=== PATIENT | female | born 1960 | race Caucasian/White ===

== ENCOUNTER 2017-04-24 19:38 | Inpatient (IN) | payer SELFPAY ==
[~2017-04-24 19:38] MED LIST: ISOVUE-370 76%-LOCM 1 ML ONE
[2017-04-24 20:10] LABS: #Eosinphils 0.1 thou/uL (0.0-0.7); #Lymphocytes 1.6 thou/uL (1.20-3.40); #Monocytes 0.9 thou/uL (0.11-0.59); #Neutrophils 12.2 thou/uL (1.40-6.50); %Basophils 0.2 % (0.0-1.0); %Eosinophils 0.4 % (0.0-10.0); %Lymphocytes 10.9 % (21.0-51.0); %Monocytes 6.1 % (0.0-10.0); Hematocrit 50.7 % (36.0-47.0); Mean Platelet Volume 9.5 fL (7.4-10.4); Red Blood Cell (RBC) Count 5.97 mill/uL (4.20-5.40); White Blood Cell (WBC) Count 14.8 thou/uL (4.8-10.8)
[2017-04-24 20:19] LABS: PTT 20.2 SEC (22.9-36.1)
[2017-04-24 20:30] LABS: ALT (SGPT) 36 U/L (8-55); AST (SGOT) 38 U/L (5-34); Alkaline Phosphatase 101 U/L (40-150); Anion Gap 18 mmol/L (10-20); BUN (Urea Nitrogen) 11 mg/dL (9.8-20.1); Bilirubin, Total 1.3 mg/dL (0.2-1.2); CK (CPK) 451 U/L (29-168); Calc. Creatinine Clearance 0 mL/min (70-130); Calcium 9.5 mg/dL (7.8-10.44); Carbon Dioxide 22 mmol/L (22-29); Chloride 101 mmol/L (98-107); Estimated GFR-MDRD 77; Globulin 3.8 g/dL (2.4-3.5); Lipase 4 U/L (8-78); Protein, Total 8.1 g/dL (6.0-8.3)
[2017-04-24 20:37] LABS: Troponin I 0.467 ng/mL (< 0.028)
--- NOTE | 2017-04-24 20:58 | RAD ---
PORTABLE AP CHEST X-RAY 04/24/17 HISTORY: Bucked off horse yesterday. Right sided rib pain and nausea today. FINDINGS: There are several posterior right sided rib fractures some of which are mildly displaced and angulat ed. There are fractures involving the second through eighth right sided ribs. There is evidence of s ubcutaneous emphysema. There is suggestion of a small right apical pneumothorax. Left lung is clear. The cardiac silhouette is magnified by projection. There is volume loss at the right lung base. IMPRESSION: 1. Multiple posterior right sided rib fractures, the majority of which are mildly displaced and slightly angulated. There is a small right apical pneumothorax occupying at least 10% of the volume of the right hemithorax. Subcutaneous emphysema is present as well. 2. Above findings discussed with Dr. Catalan in the Emergency Department on 04/24/17 at [facility]. POS: [facility]
[2017-04-24] MEDS ORDERED: diphenhydrAMINE 25 MG CAP PO PRN (21:40)
[2017-04-24] MEDS ORDERED: Ondansetron ODT 4 MG TAB PO PRN (21:40)
[2017-04-24] MEDS ORDERED: Dextrose 50% Abboject 50 ML SYRINGE SLOW IVP PRN (21:40)
[2017-04-24] MEDS ORDERED: Dextrose 5% in Water 1,000 ML IV PRN (21:40)
[2017-04-24] MEDS ORDERED: Rib Fracture Protocol PO SCH (21:45)
[2017-04-24] MEDS ORDERED: Acetaminophen 500 MG TAB ONE (21:47)
[2017-04-24] MEDS ORDERED: Ketorolac Tromethamine 30 MG/ML VIAL ONE (21:47)
--- NOTE | 2017-04-24 21:48 | CT ---
CT ANGIOGRAM THORAX WITH IV CONTRAST AND 3D RECONSTRUCTIONS CT THORACIC SPINE 04/24/17 HISTORY: Chest pain. Increased right sided chest pain after being bucked off a horse one day ago. Patient sta rosalina rib pain has increased today. FINDINGS: The heart is mildly enlarged. No filling defects are seen in the pulmonary arteries to suggest a pul monary embolus. Thoracic aorta is only partially opacified, and there does not appear to be evidence of an aortic injury. No mediastinal hematoma is seen. There is a small right pleural effusion associated with passive atelectasis. Dependent atelectasis a t the left lung base. There are multiple right sided rib fractures with mildly displaced fractures involving the right thi rd through ninth ribs. The tenth through twelfth ribs are incompletely imaged on this exam. There ar e fractures involving the posterior as well as lateral right third through sixth ribs. There is a small right sided pneumothorax occupying at least 10% of the volume of the right hemithor ax. There is associated subcutaneous emphysema present. Subcutaneous emphysema extends into the base of the neck. Visualized upper abdomen has a normal CT appearance. CT THORACIC SPINE: There are multilevel degenerative changes in the thoracic spine, but no fracture or subluxation is p resent. Imaging is only obtained to the level of the eleventh vertebral body. The T12 vertebral body and T11-12 interspace were not imaged on this exam. IMPRESSION: 1. Multiple right sided rib fractures involving the third through ninth ribs. There are two sep arate fractures involving the right third through sixth ribs consistent with flail segment. 2. Small right pleural effusion as well as right sided pneumothorax and subcutaneous emphysema. There is also evidence of atelectasis bilaterally. 3. Cardiomegaly. 4. T12 vertebral body is not imaged on this exam. There is otherwise no fracture or subluxation involving the thoracic spine. 5. Above findings discussed with Dr. Catalan in the Emergency Department on 04/24/17 at [address]. POS: [facility]
--- NOTE | 2017-04-24 21:53 | CT ---
CT CERVICAL SPINE WITHOUT IV CONTRAST 04/24/17 HISTORY: Increased right sided rib pain after being bucked off a horse one day ago. Nauseated. TECHNIQUE: Contiguous axial CT images are obtained through the cervical spine from the level of the skull base to the cervicothoracic junction. Sagittal and coronal reformatted images are provided. FINDINGS: The entire superior end plate of T1 vertebral body is not visualized but is seen on the CTA of the t horax also obtained just prior to this exam and there is no evidence of a subluxation at this level. No fracture or subluxation is seen from C1 to C7. Prevertebral soft tissues are within normal limits. There is subcutaneous emphysema seen in the righ t aspect of the neck as well as extending into a retropharyngeal location. Right sided pneumothorax was present on recent CTA of the thorax. IMPRESSION: 1. No fracture or subluxation involving the cervical spine. 2. Subcutaneous emphysema. POS: [facility]
--- NOTE | 2017-04-24 22:19 | CT ---
CT ABDOMEN AND PELVIS WITH IV CONTRAST CT LUMBAR SPINE 04/24/17 HISTORY: Patient has increasing right sided chest pain after being bucked off a horse one day ago. Pain has i ncreased today and patient has nausea. FINDINGS: There is partial visualization of a right sided pneumothorax. There is a small right pleural effusio n and atelectasis. There is a very tiny left pleural effusion with atelectasis present. There are fr actures involving the lateral right 7th through 9th ribs which are nondisplaced. These fractures wer e seen on the CTA of the chest also obtained prior to this exam. Subcutaneous emphysema is seen at t he posterolateral aspect of the lower chest. The arms are down by the side with streak artifact in the abdomen, but liver has a normal CT appeara nce without findings to suggest hepatic injury. Post cholecystectomy changes are noted. The spleen, pancreas, bilateral adrenal glands, kidneys, and urinary bladder demonstrate a normal CT appearance. Minimal vascular calcifications are seen in the abdominal aorta and iliac arteries, but there are no findings to suggest abdominal aortic injury. The uterus is small in size. No free fluid or free intraperitoneal gas is seen in the abdomen or pelvis. CT LUMBAR SPINE: II anterolisthesis of L4 on L5 with bilateral pars defects at this level. Multileve l degenerative changes are seen in the lumbar spine. No fracture or subluxation is seen involving th e lumbar spine. The visualized lower thoracic spine demonstrates no obvious fracture. IMPRESSION: 1. Partial visualization of lateral right sided lower rib fractures which were seen on CT of th e chest. There is a small right sided pneumothorax as well as right pleural effusion and atelectasis with subcutaneous emphysema. 2. Atelectasis left lung base with suggestion of very tiny left pleural effusion. 3. No acute findings are seen in the abdomen or pelvis. 4. Post cholecystectomy changes. 5. Multilevel degenerative changes throughout the visualized lower thoracic as well as involvin g the lumbar spine. Grade I spondylolisthesis at the L4-5 level is present. No acute fracture is see n involving the lumbar spine. POS: [facility]
[2017-04-24] MEDS ORDERED: Acetaminophen 500 MG TAB PO SCH (23:59)
[2017-04-24] MEDS ORDERED: Ibuprofen 800 MG TAB PO SCH (23:59)
[2017-04-25 00:04] LABS: Troponin I 0.625 ng/mL (< 0.028)
[2017-04-25] MEDS: traMADol HCl 50 MG TAB PO SCH ×3 (00:59→12:32)
[2017-04-25] MEDS: Scopolamine 1.5 mg/72 hour Patch TD SCH (00:59)
[2017-04-25 05:05] LABS: #Eosinphils 0.1 thou/uL (0.0-0.7); #Lymphocytes 2.4 thou/uL (1.20-3.40); #Monocytes 1.3 thou/uL (0.11-0.59); #Neutrophils 9.7 thou/uL (1.40-6.50); %Basophils 0.4 % (0.0-1.0); %Eosinophils 0.9 % (0.0-10.0); %Lymphocytes 17.8 % (21.0-51.0); %Monocytes 9.4 % (0.0-10.0); White Blood Cell (WBC) Count 13.6 thou/uL (4.8-10.8)
[2017-04-25 05:35] LABS: Anion Gap 10 mmol/L (10-20); BUN (Urea Nitrogen) 16 mg/dL (9.8-20.1); Calc. Creatinine Clearance 87 mL/min (70-130); Calcium 8.9 mg/dL (7.8-10.44); Carbon Dioxide 27 mmol/L (22-29); Chloride 104 mmol/L (98-107); Estimated GFR-MDRD 56; Magnesium 2.4 mg/dL (1.6-2.6)
[2017-04-25 05:38] LABS: Troponin I 0.414 ng/mL (< 0.028)
--- NOTE | 2017-04-25 05:58 | HP ---
DATE OF ADMISSION: 04/24/2017 ATTENDING PHYSICIAN: Hernando Andino MD TRAUMA ACTIVATION: Not applicable. HISTORY OF PRESENT ILLNESS: Evette Mak is a 56-year-old female who presented to [place] ER via EMS 1 day status post being bucked off a horse. Per patient, she was bucked off a horse yesterday. She had immediate onset of right-sided pain. The patient reports landing on her right side. She d enies hitting her head. She denies loss of consciousness. Throughout the day today, her right-side d pain has continued to increase. Because of this, the patient called EMS. She was evaluated in e emergency room and found to have a small right pneumothorax, multiple right-sided rib fractures, a small hemothorax with evidence of subcutaneous emphysema. Trauma Services was notified and asked t o admit. Upon my evaluation, the patient reports a chief complaint of right-sided discomfort. ALLERGIES: NOVOCAIN, PENICILLIN, CODEINE, and TETANUS. HOME MEDICATIONS: Include Verapamil 120 mg p.o. daily, metoprolol 50 mg p.o. b.i.d., Celexa 40 mg p .o. daily, Zyrtec, Benadryl 25 mg p.o. at bedtime p.r.n., levothyroxine 150 mcg p.o. daily. PAST MEDICAL HISTORY: Significant for hypertension, hypothyroidism, seasonal allergies and syncope that has been worked up and not found to have an underlying cause. PAST SURGICAL HISTORY: Cholecystectomy, tubal ligation, back cyst removal and Bartholin gland remov al. SOCIAL HISTORY: Patient lives at home with her spouse, denies alcohol, tobacco or illicit drug use. FAMILY HISTORY: Significant for father with diabetes and a mother with thyroid problems. REVIEW OF SYSTEMS: Negative except as indicated in the HPI. The patient specifically denied left-s ided chest pain, shortness of breath, dyspnea on exertion, diaphoresis, neck pain and jaw pain. PHYSICAL EXAMINATION: VITAL SIGNS: Blood pressure 118/61, pulse 89, respirations 18, O2 sat 96% on 3-4 L nasal cannula. GENERAL: Well-developed, well-nourished female in no acute distress, resting in bed. HEAD: Normocephalic, atraumatic. EYES: Pupils are PERRL. Extraocular movements are intact. NECK: Supple. Trachea is midline. There was no tenderness to palpation. Range of motion within n ormal limits per patient. CHEST: There is tenderness to palpation on the right side. There is no external ecchymosis or sign s of trauma. Normal work of breathing, symmetric rise. LUNGS: Clear to auscultation bilaterally. CARDIOVASCULAR: Regular rate and rhythm, no obvious murmurs, rubs or gallops. GASTROINTESTINAL: Abdomen with mild diffuse tenderness, no guarding, no rigidity, no signs of perit onitis. No external signs of trauma noted. BACK: Reported as being abnormal with midline upper back tenderness and paraspinal tenderness in th e mid back. EXTREMITIES: Bilateral lower extremities within normal limits. Pulses 2+. No pedal edema noted. NEUROLOGIC: GCS 15. No focal deficit noted. LABORATORY FINDINGS: WBC 14.8, hemoglobin 16.4, hematocrit 50.7, platelet count 230. INR 1.2. Sod ium 137, potassium 3.6, chloride 101, carbon dioxide 22, BUN 11, creatinine 0.77, glucose 170, T. bi li 1.3, AST 38, CK 451, CK-MB 8.8. Troponin 0.467. RADIOGRAPHIC FINDINGS: CT of the abdomen and pelvis is pending, but there is no obvious evidence of solid organ injury. CT of the C-spine was negative for acute fracture or dislocation, but did show evidence of subcutaneous emphysema. CT of the chest and thorax was significant for multiple right- sided rib fractures involving third through ninth ribs with third through sixth ribs being flail. T here is small pleural effusion/hemothorax with small right-sided pneumothorax and subcutaneous emphy sema. There was evidence of left basilar atelectasis, evidence of cardiomegaly. T-spine was negati ve for acute fracture or dislocation. Chest x-ray was significant for a small right pneumothorax an d multiple posterior right-sided rib fractures. The pneumothorax is classified as being apical and 10% in volume and there was evidence of subcutaneous emphysema. ASSESSMENT: 1. Status post trauma involving livestock. 2. Acute traumatic pain. 3. Multiple right-sided rib fractures. 4. Small right pneumothorax. 5. Right pleural effusion/possible hemothorax. 6. Elevated troponin, unclear etiology. PLAN: Admit to Trauma Services. We will admit to telemetry unit given patient's elevated troponin. We will recheck troponin q.3 hours x2 and trend. A.m. labs. Patient will be started on rib fractu re protocol p.o. pathway. Importance of incentive spirometry, pulmonary toilet, and mobility discus sed with patient. Reconcile home medications. DVT and gastritis prophylaxis as appropriate. Plans for admission were discussed with the patient who is in agreement and all questions were answered a t the time of this dictation. Trauma attending has been notified of admission.
[2017-04-25] MEDS ORDERED: Acetaminophen 500 MG TAB PO SCH (06:00)
[2017-04-25] MEDS: Ibuprofen 800 MG TAB PO SCH ×3 (06:03→17:38)
[2017-04-25] MEDS: Levothyroxine Sodium 150 MCG TAB PO SCH (06:03)
--- NOTE | 2017-04-25 08:30 | RAD ---
PORTABLE CHEST 1 VIEW: Date: 04/25/17 Time: 0658 hours HISTORY: Pneumothorax, rib fractures. FINDINGS: Comparison made with exam from previous day. Multiple right-sided rib fractures are again seen with a stable small right apical pneumothorax. The heart size is enlarged. There is continued elevation of the right hemidiaphragm. There is subcutane ous emphysema in the right lateral chest and neck. IMPRESSION: Stable exam. POS: [facility]
[2017-04-25] MEDS ORDERED: HYDROcodone/Acetaminophen 10/325 mg Tablet PO PRN ×2 (08:37→16:46)
[2017-04-25] MEDS: Gabapentin 300 MG CAP PO SCH ×3 (09:17→21:02)
[2017-04-25] MEDS: Citalopram 20 MG TAB PO SCH (09:17)
[2017-04-25] MEDS: Famotidine 20 MG TAB PO SCH ×2 (09:19→21:02)
[2017-04-25] MEDS: Cyclobenzaprine 10 MG TAB PO PRN (09:23)
[2017-04-25] MEDS: Metoprolol Tartrate 50 MG TAB PO SCH (10:20)
--- NOTE | 2017-04-25 11:41 | PRG-2 ---
DATE OF SERVICE: 04/25/2017 SUBJECTIVE: Evette Mak is a 56-year-old female who came in to the ER after being bucked off a hors e and was found to have multiple rib fractures with flail chest. She reports doing okay today. She says her pain is even with good pain control sometimes will get up to an 8. She says her breathing is doing somewhat better, reports tolerating food. The plan is to get up and work with PT and OT t lalitha. Denies any other concerns or complaints at this time. OBJECTIVE: VITAL SIGNS: Temperature is 98.0, pulse is 81, respirations are 18, O2 sat is 93% on 2-1/2 liters, blood pressure is 114/57. GENERAL: She is a well-developed, well-nourished female. HEENT: Head is normocephalic, atraumatic. CHEST: There is tenderness to palpation on the right side. There is normal work of breathing. Sym metric rise. Lungs are clear to auscultation. CARDIOVASCULAR: Regular rate and rhythm. No murmurs or gallops. GASTROINTESTINAL: Abdomen has some mild diffuse tenderness. No guarding, no rigidity, no masses. Bowel sounds heard in all 4 quadrants. NEUROLOGIC: No focal neuro deficits noted. LABORATORY DATA: White blood cell count 13.6, hemoglobin 14.5, hematocrit 46.0, platelet count is 2 01. Chemistry: Sodium 137, potassium 3.9, chloride 104, carbon dioxide 27, BUN of 16, creatinine o f 1.02, glucose 125, calcium 8.9, phosphorus a little high 5.0, magnesium is 2.4. Her troponin tren ded down from 0.625 to 0.414. Her CK-MB is 11.0 to 12.2. Repeat chest x-ray today 04/25/2017 shows a stable exam, shows multiple right-sided rib fractures wi th stable small right apical pneumothorax. ASSESSMENT: 1. Status post trauma involving livestock. 2. Acute traumatic pain. . 3. Multiple right-sided rib fractures. 4. Small right pneumothorax. 5. Right pleural effusion/possible hemothorax. 6. Elevated troponin down trending today. PLAN: We will transfer her to the surgical floor. We will continue her on the pulmonary toilet due to inadequate pain control. We will schedule her [place] 10 q.6 h. Decrease her Tylenol to 650 and continue to reassess pain. She will today work with PT and OT and continue with incentive spiromete r. DVT and gastritis prophylaxis as appropriate. The patient was seen with Dr. Dodd. Plan of care was discussed with Dr. Dodd.
[2017-04-25] MEDS ORDERED: Acetaminophen 325 MG TAB PO SCH (12:00)
--- NOTE | 2017-04-25 13:46 | CT ---
CT ANGIOGRAM THORAX WITH IV CONTRAST AND 3D RECONSTRUCTIONS CT THORACIC SPINE 04/24/17 HISTORY: Chest pain. Increased right sided chest pain after being bucked off a horse one day ago. Patient sta rosalina rib pain has increased today. FINDINGS: The heart is mildly enlarged. No filling defects are seen in the pulmonary arteries to suggest a pul monary embolus. Thoracic aorta is only partially opacified, and there does not appear to be evidence of an aortic injury. No mediastinal hematoma is seen. There is a small right pleural effusion associated with passive atelectasis. Dependent atelectasis a t the left lung base. There are multiple right sided rib fractures with mildly displaced fractures involving the right thi rd through ninth ribs. The tenth through twelfth ribs are incompletely imaged on this exam. There ar e fractures involving the posterior as well as lateral right third through sixth ribs. There is a small right sided pneumothorax occupying at least 10% of the volume of the right hemithor ax. There is associated subcutaneous emphysema present. Subcutaneous emphysema extends into the base of the neck. Visualized upper abdomen has a normal CT appearance. CT THORACIC SPINE: There are multilevel degenerative changes in the thoracic spine, but no fracture or subluxation is p resent. Imaging is only obtained to the level of the eleventh vertebral body. The T12 vertebral body and T11-12 interspace were not imaged on this exam. IMPRESSION: 1. Multiple right sided rib fractures involving the third through ninth ribs. There are two s eparate fractures involving the right third through sixth ribs consistent with flail segment. 2. Small right pleural effusion as well as right sided pneumothorax and subcutaneous emphysem a. There is also evidence of atelectasis bilaterally. 3. Cardiomegaly. 4. T12 vertebral body is not imaged on this exam. There is otherwise no fracture or subluxati on involving the thoracic spine. 5. Above findings discussed with Dr. Catalan in the Emergency Department on 04/24/17 at 2133 hours.
[2017-04-25] MEDS ORDERED: HYDROcodone/Acetaminophen 10/325 mg Tablet PO SCH (17:00)
[2017-04-25] MEDS ORDERED: HYDROcodone/Acetaminophen 5/325 mg Tablet PO PRN (20:06)
[2017-04-25] MEDS ORDERED: Naloxone HCl 1 MG in Sodium Chloride 0.9% 500 ML IV SCH (20:15)
[2017-04-25] MEDS: Enoxaparin Sodium 40 MG/0.4 ML SYRINGE SC SCH (21:02)
[2017-04-25 21:36] LABS: Oxyhemoglobin 93.1 % (94.0-97.0); Sodium 138 mmol/L (135-148)
[2017-04-25 21:45] LABS: Modified Allen's Test NOT DONE; Spontaneous Rate 10 min; Vent YES
[2017-04-25 21:47] LABS: PIP 8 cmH2O; Pressure Support 4 cmH2O
--- NOTE | 2017-04-25 21:54 | PRG ---
DATE OF SERVICE: 04/25/2017 SUBJECTIVE: Evette Mak is a 56-year-old female who presented to [place] ER status post [facility] trauma with multiple right rib fractures and a small right pneumothorax. The patient was seen by the trauma team twice earlier today. Upon our initial visit early this morning, the patient had dif ficulty with incentive spirometry and pulmonary toilet secondary to pain. Later in the afternoon, t he patient had continued complaints of pain and difficulty with incentive spirometry despite adding Manvel p.r.n. At that time, her pain regimen was increased to scheduled Manvel with Manvel for breakth rough. Shortly after our visit at bedside, the patient received two Manvel. I was called earlier th is evening secondary to altered mental status and difficulty waking the patient. She did respond to Narcan. Upon my evaluation at bedside, she is alert. Has a chief complaint of chest discomfort. She has audible wheezing. She has recently received nebulizing treatment. OBJECTIVE: VITAL SIGNS: Temperature 97.5, pulse 93, respirations 18, O2 sat 94% on 2.5 liters, and blood press ure 112/85. GENERAL: Well-developed and well-nourished female in mild distress, resting in bed. PULMONARY: Increased work of breathing. Symmetric rise. The patient is tachypneic. She has right greater than left expiratory wheezing. CARDIOVASCULAR: Regular rate and rhythm, no murmurs, rubs or gallops. GASTROINTESTINAL: Soft, nontender, nondistended. MUSCULOSKELETAL: Moves all extremities x4. NEUROLOGIC: No focal deficit noted. ASSESSMENT: 1. Status post livestock injury. 2. Acute traumatic pain. 3. Altered mental status secondary to opiate medications. 4. Multiple right-sided rib fractures. 5. Small pneumothorax. PLAN: Moved to [facility] for closer monitoring. Repeat Narcan if necessary; however, the patient's ment al status is stable at this time. We will obtain ABG to evaluate for hypoxia and CO2 retention. Al though, the patient does not have a known history of heart failure, she did have cardiomegaly on her chest x-ray. Check BNP. We will add BiPAP p.r.n. for increased work of breathing and comfort. Av oid opiate and sedating medications overnight. The plan has been discussed with Dr. Dodd. Plan for transfer has been discussed with the patient and family at bedside. All questions were ans wered at the time of this dictation.
[2017-04-25] MEDS ORDERED: Furosemide 20 MG/2 ML VIAL SLOW IVP SCH (23:00)
[2017-04-26] MEDS: Ketorolac Tromethamine 30 MG/ML VIAL IVP SCH ×2 (00:55→07:43)
[2017-04-26] MEDS: Metoprolol Tartrate 50 MG TAB PO SCH ×3 (02:55→20:19)
[2017-04-26] MEDS: Levothyroxine Sodium 150 MCG TAB PO SCH (07:43)
[2017-04-26] MEDS: Acetaminophen 500 MG TAB PO SCH ×4 (07:43→23:50)
[2017-04-26] MEDS ORDERED: traMADol HCl 50 MG TAB PO PRN (08:05)
[2017-04-26] MEDS: Famotidine 20 MG TAB PO SCH ×2 (08:58→20:20)
[2017-04-26] MEDS: Gabapentin 300 MG CAP PO SCH ×3 (08:58→20:20)
[2017-04-26] MEDS: Citalopram 20 MG TAB PO SCH (08:58)
[2017-04-26 09:15] LABS: Anion Gap 16 mmol/L (10-20); BUN (Urea Nitrogen) 36 mg/dL (9.8-20.1); Calc. Creatinine Clearance 36 mL/min (70-130); Calcium 8.7 mg/dL (7.8-10.44); Carbon Dioxide 25 mmol/L (22-29); Chloride 100 mmol/L (98-107); Estimated GFR-MDRD 18; Magnesium 2.3 mg/dL (1.6-2.6); Phosphorus 5.7 mg/dL (2.3-4.7)
[2017-04-26] MEDS ORDERED: Sodium Chloride 0.9% 1,000 ML IV SCH ×2 (09:30)
[2017-04-26] MEDS: Sodium Chloride 0.9% 1,000 ML IV SCH ×2 (10:08→18:35)
[2017-04-26] MEDS: traMADol HCl 50 MG TAB PO PRN (18:35)
[2017-04-26] MEDS: Enoxaparin Sodium 40 MG/0.4 ML SYRINGE SC SCH (20:20)
[2017-04-27] MEDS: traMADol HCl 50 MG TAB PO PRN ×3 (00:02→14:08)
[2017-04-27] MEDS: Sodium Chloride 0.9% 1,000 ML IV SCH ×2 (03:30→17:32)
[2017-04-27] MEDS: Acetaminophen 500 MG TAB PO SCH ×3 (05:57→17:45)
[2017-04-27] MEDS: Levothyroxine Sodium 150 MCG TAB PO SCH (05:57)
[2017-04-27 06:04] LABS: Magnesium 2.2 mg/dL (1.6-2.6); Phosphorus 2.7 mg/dL (2.3-4.7)
[2017-04-27] MEDS: Docusate 100 MG CAP PO SCH (08:18)
[2017-04-27] MEDS: Citalopram 20 MG TAB PO SCH (08:18)
[2017-04-27] MEDS: Famotidine 20 MG TAB PO SCH ×2 (08:18→20:14)
[2017-04-27] MEDS: Gabapentin 300 MG CAP PO SCH ×3 (08:18→20:14)
[2017-04-27] MEDS: Metoprolol Tartrate 50 MG TAB PO SCH ×2 (08:18→20:14)
[2017-04-27] MEDS: Senokot 8.6 MG TAB PO SCH (08:18)
[2017-04-27] MEDS: Cyclobenzaprine 10 MG TAB PO PRN (08:21)
[2017-04-27 11:07] LABS: #Eosinphils 0.3 thou/uL (0.0-0.7); #Lymphocytes 1.1 thou/uL (1.20-3.40); #Neutrophils 6.8 thou/uL (1.40-6.50); %Eosinophils 3.6 % (0.0-10.0); %Lymphocytes 11.8 % (21.0-51.0); %Monocytes 11.3 % (0.0-10.0); Hematocrit 36.4 % (36.0-47.0); Mean Platelet Volume 10.1 fL (7.4-10.4); Red Blood Cell (RBC) Count 4.12 mill/uL (4.20-5.40); White Blood Cell (WBC) Count 9.2 thou/uL (4.8-10.8)
[2017-04-27 11:40] LABS: Anion Gap 8 mmol/L (10-20); BUN (Urea Nitrogen) 24 mg/dL (9.8-20.1); Calc. Creatinine Clearance 118 mL/min (70-130); Calcium 8.3 mg/dL (7.8-10.44); Carbon Dioxide 28 mmol/L (22-29); Chloride 105 mmol/L (98-107); Estimated GFR-MDRD 72; Magnesium 2.2 mg/dL (1.6-2.6); Phosphorus 2.3 mg/dL (2.3-4.7)
[2017-04-27] MEDS ORDERED: Furosemide 40 MG/4 ML VIAL SLOW IVP SCH (11:45)
--- NOTE | 2017-04-27 12:39 | RAD ---
SINGLE VIEW OF CHEST: Date: 04/27/17 COMPARISON: 04/25/17. HISTORY: Hypoxia. FINDINGS: Single view of the chest shows an enlarged but stable cardiomediastinal silhouette. A cardiac monito ring device projects over the left chest. There is a pneumothorax in the right chest which appears l arger than on the prior examination. Multiple right-sided rib fractures are present. IMPRESSION: Enlarging right pneumothorax. POS: [facility]
[2017-04-27] MEDS ORDERED: Lidocaine 1% (PF) 30 ML VIAL SC SCH (13:30)
[2017-04-27] MEDS ORDERED: Ketorolac Tromethamine 60 MG/2 ML VIAL ONE (14:33)
--- NOTE | 2017-04-27 17:11 | PRG ---
DATE OF SERVICE: 04/27/2017 SUBJECTIVE: The patient was moved up from the [facility] yesterday. Overnight, she has had no issues. S he does feel like she is having some side effects of the pain medications since she has had some vis ual disturbances. This morning, she is alert and oriented. She is conversant and appears appropria te. She is tolerating her diet and she has been working with physical and occupational therapy. De nies shortness of breath. States that her pain is \\\\"mostly controlled.\\\\" OBJECTIVE: VITAL SIGNS: Temperature is 98.7, heart rate 73, respirations are 20, oxygen saturation is 95% on 4 liters, blood pressure is 136/77. HEENT: Unremarkable. LUNGS: The patient has scattered rhonchi and wheezing on both right and left sides. HEART: Regular rate and rhythm. ABDOMEN: Soft, flat, nontender. EXTREMITIES: Neurovascularly intact x4. LABORATORY DATA: This morning, white blood cell count 9.2, hemoglobin 11.4, hematocrit 36.4, platel ets 149. Sodium 137, potassium 4.4, chloride 105, CO2 of 28, BUN 24, creatinine 0.82, glucose 129, magnesium 2.2, phosphorus 2.3. BNP 287. RADIOGRAPHIC REPORTS: Shows a slightly larger right-sided pneumothorax. ASSESSMENT: Status post fall from horse with right rib fractures and right pneumothorax. PLAN: Will be today to diurese the patient, work on pain control to allow her to work better with h er inspiratory spirometry. The evaluation, examination, radiographic and laboratory findings were a ll discussed with Dr. Dodd during rounds and he was in agreement with this plan.
--- NOTE | 2017-04-27 19:38 | OP ---
DATE OF PROCEDURE: 04/27/2017 PREOPERATIVE DIAGNOSIS: Acute posttraumatic right pneumothorax. POSTOPERATIVE DIAGNOSIS: Acute posttraumatic right hemopneumothorax. PROCEDURES PERFORMED: Placement of 28 Filipino right thoracostomy tube. SURGEON: Pradeep Dodd DO ANESTHESIA: Local. INDICATIONS FOR PROCEDURE: This is a 56-year-old woman, who is status post fall off of a horse. The patient sustained multiple right rib fractures associated with moderate sized pneumothorax, which was initially managed conservatively. Today, however, the patient though with stable right pneumothorax, developed worsening hypoxemia over the last 2 to 3 hours. She is also complaining of worsening right pleuritic chest pain. The decision was made therefore to treat the pneumothorax. Findings are consistent with right posttraumatic hemopneumothorax. DESCRIPTION OF PROCEDURE: Informed consent obtained from the patient and was placed in supine position. The right chest wall is sterilely prepped and draped in the usual fashion. The skin at the sixth intercostal space right anterior axillary line was anesthetized with 1% lidocaine. A 1 cm transverse incision is made using a #15 scalpel. The right pleural cavity was bluntly entered using the hemostat. A 28 Filipino thoracostomy tube was then introduced into the right pleural cavity and advanced superiorly and posteriorly. The tube was connected to pleurovac, which was placed to suction. A 250 mL of old blood was evacuated from the pleural cavity. The patient tolerated this procedure without any apparent complication and remains hemodynamically stable following completion of the procedure. Oxygen saturation is improving. MTDD
[2017-04-27 19:44] LABS: Anion Gap 11 mmol/L (10-20); BUN (Urea Nitrogen) 22 mg/dL (9.8-20.1); Calc. Creatinine Clearance 124 mL/min (70-130); Calcium 8.4 mg/dL (7.8-10.44); Carbon Dioxide 29 mmol/L (22-29); Chloride 102 mmol/L (98-107); Estimated GFR-MDRD 76
[2017-04-27] MEDS: Enoxaparin Sodium 40 MG/0.4 ML SYRINGE SC SCH (20:14)
[2017-04-28] MEDS: Scopolamine 1.5 mg/72 hour Patch TD SCH (00:02)
[2017-04-28] MEDS: Acetaminophen 500 MG TAB PO SCH ×4 (00:03→17:59)
[2017-04-28] MEDS: traMADol HCl 50 MG TAB PO PRN ×2 (00:03→08:30)
[2017-04-28] MEDS: Levothyroxine Sodium 150 MCG TAB PO SCH (05:30)
[2017-04-28 05:49] LABS: Anion Gap 9 mmol/L (10-20); BUN (Urea Nitrogen) 20 mg/dL (9.8-20.1); Calc. Creatinine Clearance 145 mL/min (70-130); Calcium 8.7 mg/dL (7.8-10.44); Carbon Dioxide 31 mmol/L (22-29); Chloride 102 mmol/L (98-107); Estimated GFR-MDRD 90; Magnesium 2.3 mg/dL (1.6-2.6); Phosphorus 2.3 mg/dL (2.3-4.7)
--- NOTE | 2017-04-28 08:28 | RAD ---
SINGLE VIEW OF CHEST: Date: 04/28/17 COMPARISON: 04/27/17. HISTORY: Right pneumothorax status post chest tube. FINDINGS: Single view of the chest shows an enlarged but stable cardiomediastinal silhouette. There has been i nterval placement of a right-sided chest tube. The right pneumothorax has decreased in size with a s mall residual right apical pneumothorax. A cardiac monitoring device projects over the left chest. IMPRESSION: Decreased size of right pneumothorax. POS: [facility]
[2017-04-28] MEDS: Citalopram 20 MG TAB PO SCH (08:30)
[2017-04-28] MEDS: Senokot 8.6 MG TAB PO SCH (08:32)
[2017-04-28] MEDS: Gabapentin 300 MG CAP PO SCH ×3 (08:33→20:26)
[2017-04-28] MEDS: Docusate 100 MG CAP PO SCH (08:33)
[2017-04-28] MEDS: Metoprolol Tartrate 50 MG TAB PO SCH ×3 (08:33→20:27)
[2017-04-28] MEDS: Famotidine 20 MG TAB PO SCH ×2 (08:33→20:26)
[2017-04-28] MEDS: Cyclobenzaprine 10 MG TAB PO PRN (14:35)
--- NOTE | 2017-04-28 18:04 | PRG ---
DATE OF SERVICE: 04/28/2017 SUBJECTIVE: The patient is hospital day #5 status post being thrown from a horse sustaining a right -sided pneumothorax and multiple rib fractures. Yesterday afternoon, the patient became short of br eath and hypoxic and after re-evaluation, it was determined that the patient would require a right c hest tube placed, this was placed without difficulty and the patient's symptoms almost immediately i mproved. This morning, the patient states that her pain is controlled. She is tolerating a diet an d has started working with physical and occupational therapy. The patient was placed on BiPAP overn ight to assist. OBJECTIVE: VITAL SIGNS: This morning, temperature is 98.5, heart rate 66, blood pressure 122/76, respirations 18, oxygen saturation 93% on 4 liters via nasal cannula. GENERAL: The patient is resting comfortably in her chair. She is alert and oriented x3. [place] C noah Scale is 15. CHEST: Clear to auscultation. On the left, somewhat diminished but markedly improved on the right. Her chest tube is clean, dry, and intact and there is no air leak. LABORATORY DATA: This morning, sodium 138, potassium 4.3, chloride 102, CO2 31, BUN 20, creatinine 0.67, glucose 113, magnesium 2.3, phosphorus 2.3. Chest x-ray shows a right chest tube in place wit h minimal evidence of a right-sided pneumothorax. ASSESSMENT AND PLAN: Status post fall from horse. PLAN: Will be to change the chest tube to water seal. Continue pain management, pulmonary toilet, BiPAP p.r.n., and repeat chest x-ray in the morning. Evaluation, examination, and radiographs were all reviewed with Dr. Dodd at rounds.
[2017-04-28] MEDS: Enoxaparin Sodium 40 MG/0.4 ML SYRINGE SC SCH (20:25)
[2017-04-28] MEDS: Ibuprofen 600 MG TAB PO PRN (20:37)
[2017-04-29] MEDS: Acetaminophen 500 MG TAB PO SCH ×4 (00:16→18:02)
[2017-04-29] MEDS: Ibuprofen 600 MG TAB PO PRN ×2 (05:48→18:30)
[2017-04-29] MEDS: Levothyroxine Sodium 150 MCG TAB PO SCH (05:49)
[2017-04-29] MEDS ORDERED: Levothyroxine Sodium 150 MCG TAB PO SCH (06:00)
[2017-04-29] MEDS: Citalopram 20 MG TAB PO SCH (08:30)
[2017-04-29] MEDS: Docusate 100 MG CAP PO SCH (08:30)
[2017-04-29] MEDS: Senokot 8.6 MG TAB PO SCH (08:30)
[2017-04-29] MEDS: Gabapentin 300 MG CAP PO SCH ×3 (08:31→20:40)
[2017-04-29] MEDS: Cyclobenzaprine 10 MG TAB PO PRN (08:31)
[2017-04-29] MEDS: Famotidine 20 MG TAB PO SCH ×2 (08:31→20:38)
[2017-04-29] MEDS: Metoprolol Tartrate 50 MG TAB PO SCH ×2 (08:36→20:39)
--- NOTE | 2017-04-29 09:00 | RAD ---
CHEST 1 VIEW: Date: 04/29/17 HISTORY: Follow-up chest tube. COMPARISON: Chest 1 view from prior day. FINDINGS: There are multiple right-sided rib fractures. The right apical pneumothorax is similar in size with the apex at the posterior margin of the second intercostal space. Thoracostomy tube is in place with tip near the mediastinum with some mild kinking of the side port. Subcutaneous emphysema is similar. Loop recording device is present. Left chest is clear. IMPRESSION: Similar appearance of the small right apical pneumothorax with apex at the second intercostal space. POS: [facility]
[2017-04-29] MEDS: Enoxaparin Sodium 40 MG/0.4 ML SYRINGE SC SCH (20:40)
[2017-04-30] MEDS: Acetaminophen 500 MG TAB PO SCH ×5 (00:23→23:15)
[2017-04-30] MEDS: Cyclobenzaprine 10 MG TAB PO PRN ×3 (00:23→20:01)
--- NOTE | 2017-04-30 02:38 | PRG-2 ---
DATE OF SERVICE: 04/29/2017 SUBJECTIVE: This patient is hospital day #6 status post being thrown from a horse and finding a rig ht-sided pneumothorax and multiple rib fractures. The patient was found to be hypoxic yesterday. A chest tube was placed yesterday. She is status post day #1 of thoracostomy tube placement. The pa katie reports doing well. Per nursing, she was up in a chair quite a bit today working with PT, OT, continues to do incentive spirometer and pulmonary toilet, tolerating diet, was resting in bed at t his time, still reports having a little bit of pain, but pain is being well controlled. No other co ncerns or complaints at this time. OBJECTIVE: VITAL SIGNS: Temperature was 97.7, pulse 68, respirations were 16, O2 sat was 96% on 4 liters. GENERAL: The patient is resting comfortably in bed, alert and oriented x3. LUNGS: Chest is clear to auscultation on the left, somewhat diminished but markedly improved on the right. Her chest tube is clean, dry, and intact and there is no air leak. CARDIOVASCULAR: Regular rate and rhythm. No murmurs or gallops. ABDOMEN: Soft, nontender to palpation. EXTREMITIES: Moves all extremities bilaterally. NEUROVASCULAR: No focal neuro deficit. LABORATORY DATA: No new labs to review today. A chest x-ray today 04/29/2017 shows similar appearance and small right apical pneumothorax with the apex at the second intercostal space. ASSESSMENT: 1. She is status post fall from a horse. 2. Acute traumatic pain. 3. Multiple rib fractures. 4. Pneumothorax, status post thoracostomy tube. PLAN: Plan will be to put the chest tube back on suction as she still has the apical pneumothorax o n repeat chest x-ray. We will continue current pain management. Continue pulmonary toilet. Contin ue BiPAP p.r.n. and we will repeat chest x-rays as needed. We will continue to monitor labs and we will check labs as needed and replace as needed. The patient was seen and plan of care was discusse d with Dr. Dodd.
[2017-04-30] MEDS: Levothyroxine Sodium 150 MCG TAB PO SCH (05:04)
[2017-04-30] MEDS: Ibuprofen 600 MG TAB PO PRN (05:05)
[2017-04-30 07:30] LABS: #Basophils 0.1 thou/uL (0.0-0.2); #Eosinphils 0.5 thou/uL (0.0-0.7); #Lymphocytes 1.7 thou/uL (1.20-3.40); #Monocytes 0.8 thou/uL (0.11-0.59); #Neutrophils 4.5 thou/uL (1.40-6.50); %Basophils 0.7 % (0.0-1.0); %Eosinophils 7.2 % (0.0-10.0); %Lymphocytes 22.3 % (21.0-51.0); %Monocytes 10.4 % (0.0-10.0); Hematocrit 38.2 % (36.0-47.0); Mean Platelet Volume 9.1 fL (7.4-10.4); Red Blood Cell (RBC) Count 4.38 mill/uL (4.20-5.40); White Blood Cell (WBC) Count 7.5 thou/uL (4.8-10.8)
[2017-04-30 07:45] LABS: Anion Gap 12 mmol/L (10-20); BUN (Urea Nitrogen) 12 mg/dL (9.8-20.1); Calc. Creatinine Clearance 152 mL/min (70-130); Calcium 8.5 mg/dL (7.8-10.44); Carbon Dioxide 30 mmol/L (22-29); Chloride 102 mmol/L (98-107); Estimated GFR-MDRD Greater than 90; Magnesium 2.4 mg/dL (1.6-2.6); Phosphorus 3.3 mg/dL (2.3-4.7)
--- NOTE | 2017-04-30 08:46 | RAD ---
PORTABLE CHEST: History: Pneumothorax. Follow up pneumothorax and follow up right chest tube. Comparison: 04-29-17 FINDINGS: Right apical pneumothorax is again seen and is unchanged from yesterday. Right chest tube overlies t he right lung base and is unchanged. Small amount of subcutaneous emphysema. Multiple right rib frac tures. Left lung remains clear. IMPRESSION: No significant change from yesterday. POS: [facility]
[2017-04-30] MEDS: Citalopram 20 MG TAB PO SCH (09:00)
[2017-04-30] MEDS: Metoprolol Tartrate 50 MG TAB PO SCH ×2 (09:01→20:01)
[2017-04-30] MEDS: Senokot 8.6 MG TAB PO SCH (09:01)
[2017-04-30] MEDS: Gabapentin 300 MG CAP PO SCH ×3 (09:01→20:03)
[2017-04-30] MEDS: Famotidine 20 MG TAB PO SCH ×2 (09:02→20:03)
[2017-04-30] MEDS: Docusate 100 MG CAP PO SCH (09:02)
[2017-04-30] MEDS: traMADol HCl 50 MG TAB PO PRN (09:10)
[2017-04-30] MEDS: Ondansetron HCl/PF 4 MG/2 ML Vial IVP PRN (09:15)
[2017-04-30] MEDS ORDERED: traMADol HCl 50 MG TAB PO PRN (10:10)
[2017-04-30] MEDS: Ibuprofen 600 MG TAB PO SCH ×2 (11:21→17:17)
[2017-04-30] MEDS: traMADol HCl 50 MG TAB PO SCH ×3 (11:21→23:15)
--- NOTE | 2017-04-30 12:36 | PRG-2 ---
TRAUMA PROGRESS NOTE DATE OF SERVICE: 04/30/2017 SUBJECTIVE: The patient is resting in bed at this time, she is up. She reports doing much better, feeling better, says that still having some trouble with pain when she gets up. Says she was alread y sitting up in the chair for an hour and says her breathing is doing much better, doing better on t he incentive spirometer and denies any other concerns or complaints at this time. OBJECTIVE: VITAL SIGNS: Temperature is 97.7, pulse is 74, respirations are 16, O2 sat is 95% on 2 liters and b lood pressure is 152/83. GENERAL: She is alert and oriented x3. HEENT: Atraumatic and normocephalic. LUNGS: Clear to auscultation on the left, but somewhat diminished markedly on the right. Her chest tube is clean, dry and intact and there is no air leak. CARDIOVASCULAR: Regular rate and rhythm. No murmurs or gallops. ABDOMEN: Soft and nontender to palpation. Bowel sounds heard in all 4 quadrants. EXTREMITIES: Able to move all extremities. NEUROLOGIC: No focal neuro deficit. LABORATORY DATA: White blood cell count is 7.5, hemoglobin 12.2, hematocrit 38.2, platelet count of 228. Sodium is 140, potassium is 3.9, chloride was 102, carbon dioxide was 30, BUN was 12, creatin ine was 0.64, glucose is 112, calcium was 8.5, phosphorus is 3.3, magnesium was 2.4. Repeat chest x -ray 04/30 today, showed no significant change from yesterday and after reviewing it, she still has the right apical pneumothorax present. ASSESSMENT: 1. She is status post fall from a horse and being kind of trampled by the horse. 2. Acute traumatic pain. 3. Multiple rib fractures, flail chest. 4. Pneumothorax, status post thoracostomy tube. PLAN: We will continue with the chest tube on suction as she still has the apical pneumothorax pres ent on chest x-ray. She is doing better. We will continue to have her work with PT, OT and recomme nd getting up in the chair as often as she can. Her pain was a little off, so we put her on ibuprof en scheduled and put her on tramadol scheduled and tramadol for breakthrough pain and will see if th at allows her to get up more and controls her pain more. We will continue to monitor vital signs an d we will check labs as needed and replace as needed. Patient was seen and plan of care was discuss ed with Dr. Pradeep Dodd.
[2017-04-30] MEDS: Enoxaparin Sodium 40 MG/0.4 ML SYRINGE SC SCH (20:04)
[2017-04-30] MEDS: Scopolamine 1.5 mg/72 hour Patch TD SCH (23:17)
[2017-05-01] MEDS: Ibuprofen 600 MG TAB PO SCH ×3 (03:33→17:19)
[2017-05-01] MEDS: Levothyroxine Sodium 150 MCG TAB PO SCH (05:02)
[2017-05-01] MEDS: Acetaminophen 500 MG TAB PO SCH ×4 (05:03→23:54)
[2017-05-01] MEDS: traMADol HCl 50 MG TAB PO SCH ×4 (05:03→22:22)
[2017-05-01] MEDS: Citalopram 20 MG TAB PO SCH (08:47)
[2017-05-01] MEDS: Senokot 8.6 MG TAB PO SCH (08:48)
[2017-05-01] MEDS: Gabapentin 300 MG CAP PO SCH ×3 (08:48→20:53)
[2017-05-01] MEDS: Docusate 100 MG CAP PO SCH (08:48)
[2017-05-01] MEDS: Famotidine 20 MG TAB PO SCH ×2 (08:48→20:53)
[2017-05-01] MEDS: Cyclobenzaprine 10 MG TAB PO PRN (08:49)
[2017-05-01] MEDS: Metoprolol Tartrate 50 MG TAB PO SCH ×2 (08:49→20:53)
--- NOTE | 2017-05-01 09:05 | RAD ---
PORTABLE AP CHEST: Date: 05-01-17 History: Recurrent apical pneumothorax. Comparison: 04-30-17 FINDINGS: Again noted are multiple right sided rib fractures with several displaced rib fractures present. Rig ht sided thoracostomy tube remains in place overlying the right lung base. Small apical pneumothorax is again present and slightly diminished from the prior exam. Left lung remains clear. Metallic rec ording device overlies the medial left lung base. Cardiac silhouette is magnified by projection. Sub cutaneous emphysema in the lateral right chest is again present. IMPRESSION: Multiple right sided rib fractures with right sided thoracostomy tube remaining in place. There has been slight interval decrease in right apical pneumothorax, but tiny right apical pneumothorax dose persist. POS: [facility]
--- NOTE | 2017-05-01 13:44 | PRG-2 ---
DATE OF ADMISSION: 04/24/2017 DATE OF SERVICE: 05/01/2017 SUBJECTIVE: The patient is sitting up in the chair at this time, just finished eating breakfast, to lerated eating well. She says she is doing better than yesterday, had been getting up and moving ar ound, says her pain is well controlled. She says she feels like her breathing is better at this isela e. Denies any other concerns or complaint. OBJECTIVE: VITAL SIGNS: Temperature 98.3, pulse 66, respirations are 16, O2 sat is 93% on room air, blood pres sure is 141/89. PHYSICAL EXAMINATION: GENERAL: She is alert and oriented x3. HEENT: She is atraumatic and normocephalic. LUNGS: Clear to auscultation on the left, but somewhat diminished, improved on the right. Chest tu be is clean, dry, and intact. No air leak. CARDIOVASCULAR: Regular rate and rhythm. No murmurs or gallops. ABDOMEN: Soft, nontender to palpation. Bowel sounds heard in all 4 quadrants. EXTREMITIES: Able to move all extremities. NEUROLOGIC: No focal neuro deficits. LABORATORY DATA: No new labs to review this morning. Repeat chest x-ray today 05/01/2017 shows mul tiple right-sided rib fractures with right-sided thoracostomy tube remaining in place. There has be en slight interval decrease in the right apical pneumothorax, but a tiny right apical pneumothorax d oes persist. ASSESSMENT AND PLAN: 1. Status post fall from a horse being trampled by the horse. 2. Acute traumatic pain. 3. Multiple rib fractures, flail chest. 4. Pneumothorax, currently status post thoracostomy tube. We will switch her chest tube to waterse al today. The apical pneumothorax is improved, but is still present on chest x-ray. We will repeat chest x-ray tomorrow, doing better. Will continue to have her work with PT and OT and getting up t o the chair as often as she can. She continues to use incentive spirometer well. Her pain is being well controlled today. We will continue same pain management. We will continue to monitor vital s igns and check labs as needed and replace as needed. PLAN: The patient was seen and plan of care was discussed with Dr. Pradeep Dodd.
[2017-05-01] MEDS: Senokot S 8.6-50 MG TAB PO SCH (20:52)
[2017-05-01] MEDS: Enoxaparin Sodium 40 MG/0.4 ML SYRINGE SC SCH (20:52)
[2017-05-01] MEDS ORDERED: Sterile Water 10 ML VIAL FS PRN (21:04)
[2017-05-01] MEDS: acetaZOLAMIDE Sodium 500 mg Vial IVP SCH (22:06)
[2017-05-01] MEDS: Ondansetron HCl/PF 4 MG/2 ML Vial IVP PRN (22:28)
[2017-05-02] MEDS: Ibuprofen 600 MG TAB PO SCH ×3 (02:30→17:45)
[2017-05-02] MEDS: Levothyroxine Sodium 150 MCG TAB PO SCH (04:47)
[2017-05-02] MEDS: traMADol HCl 50 MG TAB PO SCH ×4 (04:48→23:30)
[2017-05-02] MEDS: Acetaminophen 500 MG TAB PO SCH ×4 (04:50→23:29)
[2017-05-02 06:09] LABS: Anion Gap 10 mmol/L (10-20); BUN (Urea Nitrogen) 12 mg/dL (9.8-20.1); Calc. Creatinine Clearance 147 mL/min (70-130); Calcium 8.6 mg/dL (7.8-10.44); Carbon Dioxide 30 mmol/L (22-29); Chloride 103 mmol/L (98-107); Estimated GFR-MDRD Greater than 90; Phosphorus 4.4 mg/dL (2.3-4.7)
--- NOTE | 2017-05-02 09:13 | RAD ---
SINGLE VIEW OF THE CHEST 05/02/17 COMPARISON: 05/01/17 HISTORY: Pneumothorax. FINDINGS: Single view of the chest shows a normal sized cardiomediastinal silhouette. There is a small stable right apical pneumothorax. A right sided chest tube is seen. A lunchroom monitor device projects over the left chest wall. There are multiple right rib fractures. IMPRESSION: Stable exam. POS: [facility]
[2017-05-02] MEDS: acetaZOLAMIDE Sodium 500 mg Vial IVP SCH ×2 (09:54→21:33)
[2017-05-02] MEDS: Polyethylene Glycol 3350 17 GM Packet PO SCH (09:54)
[2017-05-02] MEDS: Gabapentin 300 MG CAP PO SCH ×3 (09:55→21:33)
[2017-05-02] MEDS: Famotidine 20 MG TAB PO SCH ×2 (09:55→21:33)
[2017-05-02] MEDS: Citalopram 20 MG TAB PO SCH (09:55)
[2017-05-02] MEDS: Metoprolol Tartrate 50 MG TAB PO SCH ×2 (09:55→21:34)
[2017-05-02] MEDS: Senokot S 8.6-50 MG TAB PO SCH ×2 (09:56→21:33)
[2017-05-02] MEDS: Docusate 100 MG CAP PO SCH (09:56)
[2017-05-02 14:13] VITALS: BMI 34.6
[2017-05-02] MEDS: Enoxaparin Sodium 40 MG/0.4 ML SYRINGE SC SCH (21:32)
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
[2017-05-03] MEDS: Ibuprofen 600 MG TAB PO SCH ×3 (02:54→17:29)
[2017-05-03] MEDS: traMADol HCl 50 MG TAB PO SCH ×4 (05:50→23:23)
[2017-05-03] MEDS: Acetaminophen 500 MG TAB PO SCH ×4 (06:03→23:22)
[2017-05-03] MEDS: Levothyroxine Sodium 150 MCG TAB PO SCH (06:03)
[2017-05-03] MEDS: Polyethylene Glycol 3350 17 GM Packet PO SCH (09:22)
[2017-05-03] MEDS: Metoprolol Tartrate 50 MG TAB PO SCH ×2 (09:22→20:07)
[2017-05-03] MEDS: acetaZOLAMIDE Sodium 500 mg Vial IVP SCH ×2 (09:22→20:12)
[2017-05-03] MEDS: Senokot S 8.6-50 MG TAB PO SCH ×2 (09:22→20:07)
[2017-05-03] MEDS: Docusate 100 MG CAP PO SCH (09:22)
[2017-05-03] MEDS: Gabapentin 300 MG CAP PO SCH ×3 (09:23→20:07)
[2017-05-03] MEDS: Citalopram 20 MG TAB PO SCH (09:23)
[2017-05-03] MEDS: Famotidine 20 MG TAB PO SCH ×2 (09:23→20:07)
--- NOTE | 2017-05-03 11:01 | RAD ---
FRONTAL VIEW CHEST SERIES: INDICATIONS: Apical pneumothorax followup. COMPARISON: Previous day. FINDINGS: Minimal right pneumothorax is grossly stable. There is patchy density of the mid right lung zone ad jacent rib fractures. The chest is otherwise stable. IMPRESSION: 1. Stable minimal right apical pneumothorax associated with multiple right rib fractures. 2. Underlying pulmonary contusion present. POS: [facility]
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
[2017-05-03] MEDS: Enoxaparin Sodium 40 MG/0.4 ML SYRINGE SC SCH (20:07)
[2017-05-03] MEDS: Scopolamine 1.5 mg/72 hour Patch TD SCH (23:21)
[2017-05-04] MEDS: Ibuprofen 600 MG TAB PO SCH ×3 (02:53→18:04)
[2017-05-04] MEDS: Levothyroxine Sodium 150 MCG TAB PO SCH (05:37)
[2017-05-04] MEDS: Acetaminophen 500 MG TAB PO SCH ×4 (05:37→23:10)
[2017-05-04] MEDS: traMADol HCl 50 MG TAB PO SCH ×4 (05:37→22:24)
[2017-05-04] MEDS: acetaZOLAMIDE Sodium 500 mg Vial IVP SCH ×2 (09:17→20:31)
[2017-05-04] MEDS: Docusate 100 MG CAP PO SCH (09:25)
[2017-05-04] MEDS: Senokot S 8.6-50 MG TAB PO SCH ×2 (09:25→20:32)
[2017-05-04] MEDS: Gabapentin 300 MG CAP PO SCH ×3 (09:25→20:32)
[2017-05-04] MEDS: Famotidine 20 MG TAB PO SCH ×2 (09:26→20:32)
[2017-05-04] MEDS: Polyethylene Glycol 3350 17 GM Packet PO SCH (09:27)
[2017-05-04] MEDS: Citalopram 20 MG TAB PO SCH (09:27)
[2017-05-04] MEDS: Cyclobenzaprine 10 MG TAB PO PRN ×2 (09:41→18:03)
[2017-05-04] MEDS: Metoprolol Tartrate 50 MG TAB PO SCH ×2 (10:43→20:38)
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
[2017-05-04] MEDS ORDERED: Sterile Water 10 ML ONE (20:09)
[2017-05-04] MEDS: Enoxaparin Sodium 40 MG/0.4 ML SYRINGE SC SCH (20:32)
[2017-05-05] MEDS: Ibuprofen 600 MG TAB PO SCH ×2 (02:05→09:15)
[2017-05-05] MEDS: Acetaminophen 500 MG TAB PO SCH (04:53)
[2017-05-05] MEDS: Levothyroxine Sodium 150 MCG TAB PO SCH (04:53)
[2017-05-05] MEDS: traMADol HCl 50 MG TAB PO SCH (04:54)
[2017-05-05 08:06] VITALS: BP 110/73; TEMP 98
[2017-05-05] MEDS: Famotidine 20 MG TAB PO SCH (09:11)
[2017-05-05] MEDS: Cyclobenzaprine 10 MG TAB PO PRN (09:11)
[2017-05-05] MEDS: Metoprolol Tartrate 50 MG TAB PO SCH (09:12)
[2017-05-05] MEDS: Citalopram 20 MG TAB PO SCH (09:12)
[2017-05-05] MEDS: Gabapentin 300 MG CAP PO SCH (09:12)
[2017-05-05] MEDS: Polyethylene Glycol 3350 17 GM Packet PO SCH (11:18)
[2017-05-05] MEDS: acetaZOLAMIDE Sodium 500 mg Vial IVP SCH (11:18)
[2017-05-05] MEDS: Senokot S 8.6-50 MG TAB PO SCH (11:18)
[2017-05-05] MEDS: Docusate 100 MG CAP PO SCH (11:19)
== END 2017-05-05 09:47 | disposition home or self-care (01) | DRG 199 ==
LOC: ERS 19:38 → 2NO 21:40 → SJJU 04-25 17:58 → IMCU/EMU 04-25 21:17 → SURG B 04-26 17:19
PROVIDERS: ADMIT Surgery; ATTEND Surgery
PROC: 0W9930Z Drainage of Right Pleural Cavity with Drainage Device, Percutaneous Approach (ICD-10-PCS; principal; 2017-04-27)
PROC: 5A09357 Assistance with Respiratory Ventilation, Less than 24 Consecutive Hours, Continuous Positive Airway Pressure (ICD-10-PCS; 2017-04-27)
DX: S27.0XXA Traumatic pneumothorax, initial encounter (principal); S22.5XXA Flail chest, initial encounter for closed fracture; J90 Pleural effusion, not elsewhere classified; S27.2XXA Traumatic hemopneumothorax, initial encounter; V80.010A Animal-rider injured by fall from or being thrown from horse in noncollision accident, initial encounter; I10 Essential (primary) hypertension; E03.9 Hypothyroidism, unspecified; R09.02 Hypoxemia; R41.82 Altered mental status, unspecified; T40.605A Adverse effect of unspecified narcotics, initial encounter; Z88.0 Allergy status to penicillin; Z88.8 Allergy status to other drugs, medicaments and biological substances
CPT/HCPCS: 36415; 71010; 71275; 72125; 72128; 74177; 80048; 80053; 82150; 82550; 82553; 82805; 83690; 83735; 83880; 84100; 84484; 85025; 85379; 85610; 85730; 93005; 94640; 94660; 96374; A4216; G0390; G8978-GP-CK; G8979-GP-CI; G8987-GO-CL; G8988-GO-CI; J1120; J1650; J1885; J1940; J2001; J2310; J2405; J7050; J7620